=== PATIENT | male | born 1935 | race Caucasian/White ===

== ENCOUNTER 2023-01-08 12:14 | Outpatient (CLI) | payer MEDICARE, MEDICAID | END 2023-01-08 12:15 | disposition critical access hospital (66) | LOC: EMS 12:14 | DX: E11.65 Type 2 diabetes mellitus with hyperglycemia (principal); Z79.4 Long term (current) use of insulin | CPT/HCPCS: A0425; A0429 ==

== ENCOUNTER 2023-01-08 12:35 | Emergency (ER) | payer MEDICARE, MEDICAID ==
--- NOTE | 2023-01-08 13:06 | ED Physician Documentation ---
PD HPI MAJOR TRAUMA - Stated complaint Stated Complaint: GLF - Chief complaint Chief Complaint: Trauma Hd/Nk - History obtained from History obtained from: Patient, EMS - Additional information Additional information: 87-year-old gentleman presents from home place. He is demented. Reportedly fell out of his chair. He has no complaints and really does not know why he is here. PD PAST MEDICAL HISTORY - Allergies Allergies/Adverse Reactions: Allergies Allergy/AdvReac Type Severity Reaction Status Date / Time No Known Drug Allergies Allergy Verified 01/08/23 12:45 PD ED PE NORMAL - Vitals Vital signs reviewed: Yes - General General: No acute distress, Other (He is alert and oriented to person but not place or time or events.) - HEENT HEENT: PERRL, EOMI - Neck Neck: Supple, no meningeal sign, No bony TTP - Cardiac Cardiac: RRR, No murmur - Respiratory Respiratory: No respiratory distress, Clear bilaterally - Abdomen Abdomen: Non tender - Back Back: No CVA TTP, No spinal TTP - Derm Derm: Normal color, Warm and dry - Extremities Extremities: No deformity, No tenderness to palpate, Normal ROM s pain, No edema, No calf tenderness / cord - Neuro Neuro: No motor deficit, No sensory deficit, Normal speech Eye Opening: Spontaneous Motor: Obeys Commands Verbal: Confused GCS Score: 14 Results - Vitals Vitals: Vital Signs - 24 hr 01/08/23 01/08/23 12:41 12:44 Temperature 36.8 C 36.8 C Heart Rate 76 76 Respiratory 16 16 Rate Blood Pressure 141/73 H 141/73 H O2 Saturation 99 99 Oxygen O2 Source Room air PD Medical Decision Making - ED course ED course: 87-year-old gentleman with severe dementia, POLST form recommending comfort care only, I called the shortly after initial evaluation and discussed the physical exam findings, he is does seem to be at his baseline reportedly. She did not want any diagnostic testing except for confirmation of reported prehospital blood sugar that was high. He gets twice a day insulin at the facility, sounds like he is resistant to getting fingersticks. The insulin dosing has not been changed in quite some time, but since blood sugar checks are being done it is unclear what his usual blood sugar is. She requested we check it here and give him a as needed dose of insulin and then maybe make a recommendation for a CGM and/or either as needed insulin or dose adjustments. Departure - Departure Disposition: 01 Home, Self Care Clinical Impression: Fall Qualifiers: Encounter type: initial encounter Qualified Code(s): W19.XXXA - Unspecified fall, initial encounter Dementia Qualifiers: Dementia type: unspecified type Dementia severity: severe Dementia behavioral or psychological symptom: unspecified whether behavioral, psychotic, or mood disturbance or anxiety Qualified Code(s): F03.C0 - Unspecified dementia, severe, without behavioral disturbance, psychotic disturbance, mood disturbance, and anxiety Condition: Good Record reviewed to determine appropriate education?: Yes Instructions: ED Dementia Caregiver Support Comments: Mrs. Valdovinos did not want any diagnostic testing done other than a blood sugar which was 379 here. For that Mr. Valdovinos received an extra dose of 8 units of subcutaneous regular insulin. We do wonder if his blood sugars have been high, consider contacting his primary care physician for orders for more frequent blood sugar checks or a CGM and subsequent to that change in insulin dosing regimen. Forms: PCP List
[2023-01-08] MEDS ORDERED: INSULIN REGULAR HUMAN 300 UNIT/3 ML VIAL SUBQ STA (13:15)
[2023-01-08 14:28] VITALS: BP 138/70; O2SAT 100
== END 2023-01-08 14:27 | disposition home or self-care (01) ==
LOC: ED 12:35
DX: Z04.3 Encounter for examination and observation following other accident (principal); W07.XXXA Fall from chair, initial encounter; Y92.009 Unspecified place in unspecified non-institutional (private) residence as the place of occurrence of the external cause; F03.C0 Unspecified dementia, severe, without behavioral disturbance, psychotic disturbance, mood disturbance, and anxiety
CPT/HCPCS: 99283; 99284; J1815

== ENCOUNTER 2023-03-27 07:10 | Outpatient (CLI) | payer MEDICARE, MEDICAID | END 2023-03-27 23:59 | disposition critical access hospital (66) | LOC: EMS 07:10 | DX: E87.6 Hypokalemia (principal) | CPT/HCPCS: A0425; A0429 ==

== ENCOUNTER 2023-03-27 07:30 | Inpatient (IN) | payer MEDICARE, MEDICAID ==
[2023-03-27 08:11] LABS: BASOPHILS % (AUTO) 0.3 %; EOSINOPHILS # (AUTO) 0.1 10^3/uL (0.0-0.7); EOSINOPHILS % (AUTO) 1.2 %; HCT - HEMATOCRIT 40.3 % (42.0-52.0); LYMPHOCYTES # (AUTO) 2.9 10^3/uL (1.5-3.5); LYMPHOCYTES % (AUTO) 32.2 %; MEAN CORPUSCULAR HEMOGLOBIN 29.7 pg (27.0-31.0); MEAN CORPUSCULAR HGB CONC 32.3 g/dL (32.0-36.0); MEAN PLATELET VOLUME 10.9 fL (7.4-11.4); MONOCYTES # (AUTO) 1.2 10^3/uL (0.0-1.0); MONOCYTES % (AUTO) 13.3 %; NEUTROPHILS # (AUTO) 4.8 10^3/uL (1.5-6.6); NEUTROPHILS % (AUTO) 52.1 %; PLT - PLATELET COUNT 211 10^3/uL (130-450); RED BLOOD COUNT 4.38 10^6/uL (4.70-6.10); RED CELL DISTRIBUTION WIDTH 13.8 % (12.0-15.0); WHITE BLOOD COUNT 9.1 x10^3/uL (4.8-10.8)
--- NOTE | 2023-03-27 08:20 | ED Physician Documentation ---
History of Present Illness - Stated complaint Stated Complaint: high POTASSIUM - Chief complaint Chief Complaint: General - History obtained from History obtained from: Patient - History of Present Illness Timing: How many days ago (unknown how many days he has had high potassium. He has fet mainly okay. Few days of fatigue. Had labs drawn yesterday at [facility] and results today showing high potassium level. Denies change in meds. No recent illness.), Unknown Review of Systems Constitutional: denies: Fever, Chills Cardiac: denies: Chest pain / pressure Respiratory: denies: Dyspnea GI: denies: Vomiting, Constipation, Bloody / black stool PD PAST MEDICAL HISTORY - Past Medical History Past Medical History: Yes Cardiovascular: Hypertension Neuro: Dementia Endocrine/Autoimmune: Type 2 diabetes GI: None - Present Medications Home Medications: Ambulatory Orders Medication Instructions Recorded Confirmed Aspirin Chewable [St Kleber 81 mg PO DAILY 03/27/23 03/27/23 Aspirin] Atorvastatin Calcium 40 mg PO QPM 03/27/23 03/27/23 Empagliflozin [Jardiance] 10 mg PO DAILY 03/27/23 03/27/23 Gabapentin [Neurontin] 1,200 mg PO BID 03/27/23 03/27/23 Insulin Glargine,Hum.rec.anlog 132 units SUBQ DAILY 03/27/23 03/27/23 [[place]o Solostar] Insulin Regular, Human [Novolin R 6 units SUBQ 0800,1200 03/27/23 03/27/23 Flexpen] Lisinopril [Zestril] 20 mg PO DAILY 03/27/23 03/27/23 Multivit-Min/Iron Fum/Folic AC 1 each PO DAILY 03/27/23 03/27/23 [Thera-M Caplet] Omeprazole Magnesium 20 mg PO BID 03/27/23 03/27/23 Quetiapine Fumarate [Seroquel] 50 mg PO TID 03/27/23 03/27/23 Sertraline [Zoloft] 50 mg PO DAILY 03/27/23 03/27/23 - Allergies Allergies/Adverse Reactions: Allergies Allergy/AdvReac Type Severity Reaction Status Date / Time ethyl alcohol Allergy Unknown Verified 03/27/23 07:44 morphine Allergy Unknown Verified 03/27/23 07:44 - Social History Does the pt smoke?: No Smoking Status: Never smoker PD ED PE NORMAL - Vitals Vital signs reviewed: Yes - General General: Alert and oriented X 3, Well developed/nourished - HEENT HEENT: Pharynx benign - Neck Neck: Supple, no meningeal sign, No adenopathy - Cardiac Cardiac: RRR - Respiratory Respiratory: Clear bilaterally - Abdomen Abdomen: Soft, Non tender - Back Back: No CVA TTP - Derm Derm: Normal color Results - Vitals Vitals: Vital Signs - 24 hr 03/27/23 03/27/23 03/27/23 07:40 08:34 09:13 Temperature 36.8 C Heart Rate 80 54 L 39 L Respiratory 14 18 14 Rate Blood Pressure 109/55 L 102/33 L 124/69 O2 Saturation 99 98 99 03/27/23 03/27/23 03/27/23 09:25 09:46 11:45 Temperature Heart Rate 55 L 53 L 88 Respiratory 18 14 16 Rate Blood Pressure 124/69 123/83 H O2 Saturation 100 99 Oxygen O2 Source Room air - Labs Labs: Laboratory Tests 03/27/23 03/27/23 03/27/23 07:52 07:52 09:09 WBC 9.1 RBC 4.38 L Hgb 13.0 L Hct 40.3 L MCV 92.0 MCH 29.7 MCHC 32.3 RDW 13.8 Plt Count 211 MPV 10.9 Neut # (Auto) 4.8 Lymph # (Auto) 2.9 Woods # (Auto) 1.2 H Eos # (Auto) 0.1 Baso # (Auto) 0.0 Absolute Nucleated RBC 0.00 Nucleated RBC % 0.0 Sodium 132 L Potassium 6.8 H* 6.7 H* Chloride 106 Carbon Dioxide 18 L Anion Gap 8.0 BUN 78 H Creatinine 2.1 H Estimated GFR (MDRD) 30 L Glucose 294 H Calcium 9.9 Magnesium 1.9 Total Bilirubin 0.3 AST 19 ALT 18 Alkaline Phosphatase 33 L Total Protein 8.0 Albumin 4.2 Globulin 3.8 Albumin/Globulin Ratio 1.1 Lipase 59 03/27/23 11:53 WBC RBC Hgb Hct MCV MCH MCHC RDW Plt Count MPV Neut # (Auto) Lymph # (Auto) Woods # (Auto) Eos # (Auto) Baso # (Auto) Absolute Nucleated RBC Nucleated RBC % Sodium 135 Potassium 5.3 H Chloride 105 Carbon Dioxide 20 L Anion Gap 10.0 BUN 72 H Creatinine 1.9 H Estimated GFR (MDRD) 34 L Glucose 265 H Calcium 10.1 Magnesium Total Bilirubin AST ALT Alkaline Phosphatase Total Protein Albumin Globulin Albumin/Globulin Ratio Lipase PD Medical Decision Making - ED course Complexity details: reviewed results (sent to ED due to high potassium level from outpt labs done yesterday.), considered differential (old records obtained. Ptis was having increased cough over just few days, and much worse this early SMM.), d/w patient Reviewed Lab Results: improved reasonably, with nancy dow in place to best assess diuresis. Subsquently at late morning, the patient was on monitor and just starting to get meds when pt noted to have heart ate down to 27-30 for 10-15 seconds. Stayed sinu. resume more in range 45-60. Given Albuterol neb, IV insulin with d5ns drip, lasix. BP was seeming a bit high and had room for then Greeting Room. He was more consistent at IV in rate above 55 after meds, though was trending ther with meds. Consider oral med once back to NSR. Departure - Departure Disposition: ED Place in Observation Clinical Impression: Acute hyperkalemia, Elevated serum creatinine Condition: Stable Record reviewed to determine appropriate education?: Yes Discharge Date/Time: 03/27/23 14:55
[2023-03-27 08:28] LABS: ALBUMIN 4.2 g/dL (3.2-5.5); MAGNESIUM 1.9 mg/dL (1.7-2.3)
[2023-03-27 08:32] LABS: ALBUMIN/GLOBULIN RATIO 1.1 (1.0-2.2); BILIRUBIN,TOTAL 0.3 mg/dL (0.2-1.0); CALCIUM 9.9 mg/dL (8.5-10.3); CREATININE 2.1 mg/dL (0.6-1.3); POTASSIUM 6.8 mmol/L (3.5-4.5)
[2023-03-27] MEDS ORDERED: ALBUTEROL NEB 2.5 MG/3 ML INH STA ×2 (09:12→09:17)
[2023-03-27] MEDS ORDERED: CALCIUM GLUC 1,000MG/50ML-NACL 1,000 MG/50 ML BAG IV STA (09:13)
[2023-03-27] MEDS ORDERED: SODIUM ZIRCONIUM CYCLOSILICATE 5 GM PACKET PO STA (09:13)
[2023-03-27] MEDS ORDERED: INSULIN REGULAR HUMAN 300 UNIT/3 ML VIAL IVP STA (09:13)
[2023-03-27] MEDS ORDERED: DEXTROSE 5%-0.9% NACL 1,000 ML IV STA (09:14)
[2023-03-27] MEDS ORDERED: SODIUM BICARBONATE ABBOJECT 50 MEQ/50 ML SYRINGE IVP STA (09:14)
[2023-03-27] MEDS ORDERED: ALBUTEROL NEB 2.5 MG/3 ML INH ONE (09:19)
[2023-03-27 12:12] LABS: CALCIUM 10.1 mg/dL (8.5-10.3); CREATININE 1.9 mg/dL (0.6-1.3); POTASSIUM 5.3 mmol/L (3.5-4.5)
--- NOTE | 2023-03-27 12:55 | HISTORY & PHYSICAL EXAMINATION ---
Chief Complaint - Chief Complaint Chief Complaint: Hyperkalemia History of Present Illness - Admitted From Admitted From:: Emergency room - History Obtained From Records Reviewed: Yes History obtained from: Patient's . - History of Present Illness HPI Comment/Other: Teodoro Valdovinos is an 87-year-old man who presented to the emergency room today fro m a assisted with an elevated potassium. Initial potassium in the assisted was 7.4 and recheck in the emergency room was 6.8 and 6.7.Mr. Valdovinos has moderate/severe dementia and is unable to co ntribute to the history of present illness. Information was obtained from patient's . In the emergency room patient received Lokelma, Albuterol nebulizer treatment, calcium gluconate. History - Past Medical History Neuro: reports: Dementia Endocrine/Autoimmune: reports: Type 2 diabetes Other Past Medical History: Hyperlipidemia. gastroesophageal reflux disease. Dementia. Anxiety/depression. Hypertension - Family & Social History Living arrangement: [facility] Med[facility] - Home Medications Home Medications: Ambulatory Orders Medication Instructions Recorded Confirmed Aspirin Chewable [St Kleber 81 mg PO DAILY 03/27/23 03/27/23 Aspirin] Atorvastatin Calcium 40 mg PO QPM 03/27/23 03/27/23 Empagliflozin [Jardiance] 10 mg PO DAILY 03/27/23 03/27/23 Gabapentin [Neurontin] 1,200 mg PO BID 03/27/23 03/27/23 Insulin Glargine,Hum.rec.anlog 132 units SUBQ DAILY 03/27/23 03/27/23 [[place] Solostar] Insulin Regular, Human [Novolin R 6 units SUBQ 0800,1200 03/27/23 03/27/23 Flexpen] Lisinopril [Zestril] 20 mg PO DAILY 03/27/23 03/27/23 Multivit-Min/Iron Fum/Folic AC 1 each PO DAILY 03/27/23 03/27/23 [Thera-M Caplet] Omeprazole Magnesium 20 mg PO BID 03/27/23 03/27/23 Quetiapine Fumarate [Seroquel] 50 mg PO TID 03/27/23 03/27/23 Sertraline [Zoloft] 50 mg PO DAILY 03/27/23 03/27/23 - Allergies Allergies/Adverse Reactions: Allergies Allergy/AdvReac Type Severity Reaction Status Date / Time ethyl alcohol Allergy Unknown Verified 03/27/23 07:44 morphine Allergy Unknown Verified 03/27/23 07:44 Review of Systems - Cardiovascular Cariovascular: reports: Other (Unable to obtain review of systems from patient because of his dementia.) Exam - Vital Signs Vital Signs: Vital Signs x48h Temp Pulse Resp BP Pulse Ox 03/27/23 11:45 88 16 123/83 H 99 03/27/23 09:46 53 L 14 124/69 100 03/27/23 09:25 55 L 18 03/27/23 09:13 39 L 14 124/69 99 03/27/23 08:34 54 L 18 102/33 L 98 03/27/23 07:40 36.8 C 80 14 109/55 L 99 - Physical Exam General Appearance: positive: No acute distress, Alert, Mild distress Eyes Bilateral: positive: Normal inspection, PERRL, EOMI, No lid inflammation Neck: positive: Nml inspection, Thyroid nml, No JVD Respiratory: positive: Chest non-tender, No respiratory distress, Breath sounds nml Cardiovascular: positive: Regular rate & rhythm, No murmur, No gallop Abdomen: positive: Non-tender, No organomegaly Skin: positive: No rash Conclusion/Plan - Problem List (1) Acute hyperkalemia Conclusion/Plan: Patient has hyperkalemia of a significant degree. Initial hyperkalemia was 7.4 and repeats performed in the emergency room were greater than 6.7. Patient currently has a life-threatening condition that requires monitoring in intensive care unit. Plan: Admit to the intensive care unit for close hemodynamic monitoring. Continue to follow serum potassium and treat with insulin, albuterol and Lokelma. (2) ABDULKADIR (acute kidney injury) Conclusion/Plan: Upon admission BUN/creatinine was 70/2.2. Patient's baseline creatinine is not known but most likely this represents a change from his baseline but is unlikely to result in his degree of hyperkalemia. Plan: Continue to monitor BUNs/creatinine. Gentle fluid hydration. (3) Dementia Conclusion/Plan: Patient has severe dementia. He has a pulse that states he is DO NOT RESUSCITATE and comfort measures only. The pulse was discussed with patient's and she wishes to have him admitted to the hospital for treatment of his hyperkalemia, however, in the event that his condition worsens she does not wish to continue with aggressive care and would want another discussion at that time if possible. Time spent at the bedside, interviewing family, reviewing labs and writing orders is 42 minutes.([id number]) Qualifiers: Dementia type: unspecified type Dementia severity: severe Dementia behavioral or psychological symptom: unspecified whether behavioral, psychotic, or mood disturbance or anxiety Qualified Code(s): F03.C0 - Unspecified dementia, severe, without behavioral disturbance, psychotic disturbance, mood disturbance, and anxiety - Lab Results Fish Bones: 03/28/23 05:33 03/28/23 05:33
[2023-03-27 14:14] LABS: INR 1.1 (0.8-1.2); PT - PROTHROMBIN TIME 11.7 secs (9.9-12.6)
--- NOTE | 2023-03-27 15:11 | PHARMACY PROGRESS NOTE ---
- Best Possible Medication History Admit Date and Time: 03/27/23 9535 Processed by: Pharmacy Medication History completed: Yes Secondary Source(s): Facility MAR as ONLY source As the person ultimately responsible for medication therapy, providers are able to order a medication from an existing home medication list in [facility] via the "Reconcile Routine" prior to Confirmation of that medication by end user support specialist. Such practice is discouraged except when the physician, in their clinical judgment, deems that a medical need exists for a medication without regard to previous use.
[2023-03-27] MEDS: SODIUM CHLORIDE FLUSH 0.9% 10 ML SYRINGE IVP SCH (18:07)
[2023-03-27] MEDS: INSULIN REGULAR HUMAN 300 UNIT/3 ML VIAL SUBQ SCH (19:48)
[2023-03-27] MEDS: SODIUM CHLORIDE 0.9% 1,000 ML IV SCH (21:02)
[2023-03-27] MEDS: SODIUM CHLORIDE FLUSH 0.9% 10 ML SYRINGE IVP PRN (21:03)
[2023-03-27] MEDS: HEPARIN 5,000 UNIT/ML VIAL SUBQ SCH (21:03)
[2023-03-27] MEDS: SODIUM ZIRCONIUM CYCLOSILICATE 5 GM PACKET PO SCH (21:44)
[2023-03-28] MEDS: INSULIN REGULAR HUMAN 300 UNIT/3 ML VIAL SUBQ SCH (00:08)
[2023-03-28] MEDS: SODIUM CHLORIDE FLUSH 0.9% 10 ML SYRINGE IVP SCH ×3 (00:09→16:28)
[2023-03-28 05:45] LABS: CALCIUM, IONIZED 1.18 mmol/L (1.15-1.33); VBG PH 7.349 (7.31-7.41)
[2023-03-28 05:48] LABS: BASOPHILS % (AUTO) 0.2 %; EOSINOPHILS # (AUTO) 0.1 10^3/uL (0.0-0.7); EOSINOPHILS % (AUTO) 0.6 %; HCT - HEMATOCRIT 35.6 % (42.0-52.0); HGB - HEMOGLOBIN 11.6 g/dL (14.0-18.0); LYMPHOCYTES % (AUTO) 33.9 %; MEAN CORPUSCULAR HGB CONC 32.6 g/dL (32.0-36.0); MEAN PLATELET VOLUME 10.3 fL (7.4-11.4); MONOCYTES # (AUTO) 1.3 10^3/uL (0.0-1.0); MONOCYTES % (AUTO) 14.8 %; NEUTROPHILS # (AUTO) 4.4 10^3/uL (1.5-6.6); NEUTROPHILS % (AUTO) 49.8 %; PLT - PLATELET COUNT 191 10^3/uL (130-450); RED BLOOD COUNT 3.87 10^6/uL (4.70-6.10); WHITE BLOOD COUNT 8.8 x10^3/uL (4.8-10.8)
[2023-03-28 05:55] LABS: ALBUMIN 3.7 g/dL (3.2-5.5); ALKALINE PHOSPHATASE 26 IU/L (42-121); ALT ALANINE AMINOTRANSFERASE 15 IU/L (10-60); AST ASPARTATE AMINOTRANSFERASE 19 IU/L (10-42); BILIRUBIN,DIRECT < 0.10 mg/dL (0.03-0.18); BILIRUBIN,TOTAL 0.4 mg/dL (0.2-1.0); BUN - BLOOD UREA NITROGEN 55 mg/dL (6-20); CALCIUM 9.2 mg/dL (8.5-10.3); CARBON DIOXIDE - CO2 20 mmol/L (21-32); CHLORIDE 108 mmol/L (101-111); CREATININE 1.4 mg/dL (0.6-1.3); GFR - MDRD 48 (>89); GLUCOSE 103 mg/dL (74-104); MAGNESIUM 1.6 mg/dL (1.7-2.3); PHOSPHORUS 3.5 mg/dL (2.5-5.0); SODIUM 135 mmol/L (135-145); TOTAL PROTEIN 6.8 g/dL (6.4-8.9)
[2023-03-28] MEDS: SODIUM ZIRCONIUM CYCLOSILICATE 5 GM PACKET PO SCH ×4 (06:37→21:08)
[2023-03-28] MEDS: PANTOPRAZOLE 40 MG VIAL IVP SCH (06:38)
[2023-03-28] MEDS ORDERED: MAGNESIUM OXIDE 400 MG TABLET PO ONE (07:00)
[2023-03-28] MEDS: INSULIN LISPRO 300 UNIT/3 ML PEN SUBQ SCH ×4 (08:04→21:21)
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
[2023-03-28] MEDS: SODIUM CHLORIDE 0.9% 1,000 ML IV SCH ×2 (09:19→21:09)
[2023-03-28] MEDS: HEPARIN 5,000 UNIT/ML VIAL SUBQ SCH ×2 (10:31→21:07)
[2023-03-28] MEDS: ASPIRIN CHEW 81 MG TABLET PO SCH (10:32)
[2023-03-28] MEDS: QUEtiapine 25 MG TABLET PO SCH ×3 (10:32→21:08)
[2023-03-28] MEDS: SERTRALINE 50 MG TABLET PO SCH (10:32)
[2023-03-28] MEDS: ATORVASTATIN 40 MG TABLET PO SCH (21:08)
[2023-03-28] MEDS: GABAPENTIN 400 MG CAPSULE PO SCH (21:08)
[2023-03-28] MEDS: SODIUM CHLORIDE FLUSH 0.9% 10 ML SYRINGE IVP PRN (21:09)
[2023-03-28 21:32] LABS: PHOSPHORUS 3.5 mg/dL (2.5-5.0); POTASSIUM 4.8 mmol/L (3.5-4.5)
[2023-03-29] MEDS: QUEtiapine 25 MG TABLET PO SCH ×3 (05:04→23:00)
[2023-03-29] MEDS: SODIUM CHLORIDE FLUSH 0.9% 10 ML SYRINGE IVP SCH ×3 (05:04→17:24)
[2023-03-29 06:25] LABS: CALCIUM 9.3 mg/dL (8.5-10.3); CREATININE 1.5 mg/dL (0.6-1.3); MAGNESIUM 1.5 mg/dL (1.7-2.3); POTASSIUM 4.4 mmol/L (3.5-4.5)
[2023-03-29] MEDS: PANTOPRAZOLE 40 MG VIAL IVP SCH (06:28)
[2023-03-29] MEDS: SODIUM ZIRCONIUM CYCLOSILICATE 5 GM PACKET PO SCH ×2 (06:28→06:40)
[2023-03-29] MEDS: INSULIN LISPRO 300 UNIT/3 ML PEN SUBQ SCH ×4 (09:03→20:14)
[2023-03-29] MEDS: HEPARIN 5,000 UNIT/ML VIAL SUBQ SCH ×2 (09:03→20:14)
[2023-03-29] MEDS: GABAPENTIN 400 MG CAPSULE PO SCH ×2 (09:05→20:14)
[2023-03-29] MEDS: SERTRALINE 50 MG TABLET PO SCH (09:05)
[2023-03-29] MEDS: MAGNESIUM OXIDE 400 MG TABLET PO SCH (09:05)
[2023-03-29] MEDS: ASPIRIN CHEW 81 MG TABLET PO SCH (09:06)
[2023-03-29] MEDS: SODIUM CHLORIDE 0.9% 1,000 ML IV SCH ×2 (10:13→23:08)
[2023-03-29] MEDS: ATORVASTATIN 40 MG TABLET PO SCH (20:13)
[2023-03-29] MEDS ORDERED: ENOXAPARIN 40 MG/0.4 ML SYRINGE SUBQ SCH (21:00)
--- NOTE | 2023-03-29 23:10 | PROVIDER PROGRESS NOTE ---
Assessment/Plan - Problem List (1) Acute hyperkalemia Assessment/Plan: Patient initially had a life threatening electrolyle abnormality with potassium in greater than 6.7. Initial hyperkalemia was 7.4 and repeats performed in the emergency room were greater than 6.7. Hyperkalemia has improved with treatment but continues to remain mildly elevated. Plan: Continue lokelma as needed for elevated K Continue to follow potassium (2) ABDULKADIR (acute kidney injury) Assessment/Plan: Upon admission BUN/creatinine was 70/2.2. Creatinine has improved from 2.2-1.5. Etiology of acute renal failure is not clear but is highly likely secondary to dementia and decreased p.o. intake. Plan: Continue to monitor BUN/creatinine. Gentle fluid hydration. (3) Dementia Qualifiers: Dementia type: unspecified type Dementia severity: severe Dementia behavioral or psychological symptom: unspecified whether behavioral, psychotic, or mood disturbance or anxiety Qualified Code(s): F03.C0 - Unspecified dementia, severe, without behavioral disturbance, psychotic disturbance, mood disturbance, and anxiety Assessment/Plan: Patient has severe dementia. He has a POLST that states he is DO NOT RESUSCITATE and comfort measures only. The pulse was discussed with patient's and she wishes to have him admitted to the hospital for treatment of his hyperkalemia, however, in the event that his condition worsens she does not wish to continue with aggressive care and would want another discussion at that time if possible. Plan: Continue outpatient dose of quetiapine Plan to discuss the fact that the reason for patient's hyperkalemia and renal failure most likely is related to his dementia and the fact that he is probably not taking enough p.o. intake. Discussed the above with patient's . - Current Meds Current Meds: Current Medications Generic Name Dose Route Start Last Admin Trade Name Freq PRN Reason Stop Dose Admin Aspirin 81 mg 03/28/23 10:00 03/29/23 09:06 Aspirin Chew 81 Mg Tablet PO 81 mg DAILY [facility] Administration Atorvastatin Calcium 40 mg 03/28/23 21:00 03/29/23 20:13 Atorvastatin 40 Mg Tablet PO 40 mg QPM [facility] Administration Gabapentin 800 mg 03/28/23 21:00 03/29/23 20:14 Gabapentin 400 Mg Capsule PO 800 mg BID [facility] Administration Heparin Sodium (Porcine) 5,000 unit 03/27/23 21:00 03/29/23 20:14 Heparin 5,000 Unit/Ml Vial SUBQ Not Given BID [facility] Sodium Chloride 1,000 mls @ 83.333 mls/hr 03/27/23 21:00 03/29/23 10:13 Normal Saline 0.9% IV Not Given .Q12H [facility] Insulin Human Lispro 1 - 9 unit 03/28/23 08:00 03/29/23 20:14 Insulin Lispro 300 Unit/3 Ml Pen SUBQ 7 unit 0800,1200,1700,2100 [facility] Administration Protocol Magnesium Oxide 400 mg 03/29/23 08:00 03/29/23 09:05 Magnesium Oxide 400 Mg Tablet PO 400 mg DAILYWM [facility] Administration Quetiapine Fumarate 50 mg 03/28/23 10:00 03/29/23 14:54 Quetiapine 25 Mg Tablet PO 50 mg TID [facility] Administration Sertraline HCl 50 mg 03/28/23 10:00 03/29/23 09:05 Sertraline 50 Mg Tablet PO 50 mg DAILY [facility] Administration Sodium Chloride 10 ml 03/27/23 17:00 03/29/23 17:24 Sodium Chloride Flush 0.9% 10 Ml Syringe IVP 10 ml 0100,0900,1700 [facility] Administration Sodium Chloride 10 ml 03/27/23 12:59 03/28/23 21:09 Sodium Chloride Flush 0.9% 10 Ml Syringe IVP 10 ml PRN PRN Administration NEEDED PER PROVIDER ORDERS - Lab Result Fish Bone Diagrams: 03/28/23 05:33 03/29/23 04:58 - Additional Planning My Orders: My Active Orders 03/29/23 08:00 Magnesium Oxide [Mag Ox] 400 mg PO DAILYWM 03/30/23 05:00 BMP - BASIC METABOLIC PANEL [CHEM] DAILYLAB 03/30/23 07:00 Pantoprazole [Protonix] 40 mg PO QDAC 03/31/23 05:00 BMP - BASIC METABOLIC PANEL [CHEM] DAILYLAB 04/01/23 05:00 BMP - BASIC METABOLIC PANEL [CHEM] DAILYLAB 04/02/23 05:00 BMP - BASIC METABOLIC PANEL [CHEM] DAILYLAB Subjective - Subjective Patient Reports: Other (Patient sleeps most of the time. He can be violent. He has no complaints.) Objective Vital Signs: Vital Signs - 24 hr 03/29/23 03/29/23 03/29/23 01:00 05:00 09:00 Temperature 37.0 C 36.8 C Heart Rate [ 81 84 88 Monitoring electrodes] Respiratory 20 20 18 Rate Blood Pressure 128/74 138/61 H 138/55 H [Left Brachial artery] O2 Saturation 95 97 96 03/29/23 03/29/23 17:00 20:29 Temperature 36.6 C 36.5 C Heart Rate [ 53 L 68 Monitoring electrodes] Respiratory 16 18 Rate Blood Pressure 131/46 H 148/68 H [Left Brachial artery] O2 Saturation 95 97 Oxygen O2 Source Room air I&O (Last 24 Hrs): Intake and Output Totals x24h 03/27/23 03/28/23 03/29/23 23:59 23:59 23:59 Intake Total 1050 5320 625 Output Total 250 0 Balance 800 5320 625 General: Alert, No acute distress HEENT: Atraumatic, PERRLA, EOMI Neck: Supple, No JVD Lymphatic: no adenopathy Neuro: Alert, Non Focal Cardiovascular: Regular rate, Normal S1, Normal S2, No murmurs Respiratory: Chest non-tender, No respiratory distress, Breath sounds nml, Wheezes Abdomen: Normal bowel sounds, Soft, No tenderness Extremities: No clubbing, No cyanosis, No edema Skin: No rashes - Results Results: Laboratory Results WBC 8.8 x10^3/uL (4.8-10.8) 03/28/23 05:33 RBC 3.87 10^6/uL (4.70-6.10) L 03/28/23 05:33 Hgb 11.6 g/dL (14.0-18.0) L 03/28/23 05:33 Hct 35.6 % (42.0-52.0) L 03/28/23 05:33 MCV 92.0 fL (80.0-94.0) 03/28/23 05:33 MCH 30.0 pg (27.0-31.0) 03/28/23 05:33 MCHC 32.6 g/dL (32.0-36.0) 03/28/23 05:33 RDW 14.0 % (12.0-15.0) 03/28/23 05:33 Plt Count 191 10^3/uL (130-450) 03/28/23 05:33 MPV 10.3 fL (7.4-11.4) 03/28/23 05:33 Neut # (Auto) 4.4 10^3/uL (1.5-6.6) 03/28/23 05:33 Lymph # (Auto) 3.0 10^3/uL (1.5-3.5) 03/28/23 05:33 [place] # (Auto) 1.3 10^3/uL (0.0-1.0) H 03/28/23 05:33 Eos # (Auto) 0.1 10^3/uL (0.0-0.7) 03/28/23 05:33 Baso # (Auto) 0.0 10^3/uL (0.0-0.1) 03/28/23 05:33 Absolute Nucleated RBC 0.00 x10^3/uL 03/28/23 05:33 Nucleated RBC % 0.0 /100WBC 03/28/23 05:33 PT 11.7 secs (9.9-12.6) 03/27/23 13:50 INR 1.1 (0.8-1.2) 03/27/23 13:50 VBG pH 7.349 (7.31-7.41) 03/28/23 05:33 Ionized Calcium 1.18 mmol/L (1.15-1.33) 03/28/23 05:33 Sodium 137 mmol/L (135-145) 03/29/23 04:58 Potassium 4.4 mmol/L (3.5-4.5) 03/29/23 04:58 Chloride 108 mmol/L (101-111) 03/29/23 04:58 Carbon Dioxide 19 mmol/L (21-32) L 03/29/23 04:58 Anion Gap 10.0 (6-13) 03/29/23 04:58 BUN 42 mg/dL (6-20) H 03/29/23 04:58 Creatinine 1.5 mg/dL (0.6-1.3) H 03/29/23 04:58 Estimated GFR (MDRD) 44 (>89) L 03/29/23 04:58 Glucose 145 mg/dL (74-104) H 03/29/23 04:58 Calcium 9.3 mg/dL (8.5-10.3) 03/29/23 04:58 Phosphorus 3.5 mg/dL (2.5-5.0) 03/28/23 21:10 Magnesium 1.5 mg/dL (1.7-2.3) L 03/29/23 04:58 Total Bilirubin 0.4 mg/dL (0.2-1.0) 03/28/23 05:33 Direct Bilirubin < 0.10 mg/dL (0.03-0.18) 03/28/23 05:33 AST 19 IU/L (10-42) 03/28/23 05:33 ALT 15 IU/L (10-60) 03/28/23 05:33 Alkaline Phosphatase 26 IU/L (42-121) L 03/28/23 05:33 Total Creatine Kinase 166 IU/L (30-223) 03/27/23 18:40 Troponin I High Sens 9.4 ng/L (2.3-19.7) 03/27/23 13:50 Total Protein 6.8 g/dL (6.4-8.9) 03/28/23 05:33 Albumin 3.7 g/dL (3.2-5.5) 03/28/23 05:33 Globulin 3.1 g/dL (2.1-4.2) 03/28/23 05:33 Albumin/Globulin Ratio 1.1 (1.0-2.2) 03/27/23 07:52 Lipase 59 U/L (11-82) 03/27/23 07:52 Nasal Screen MRSA (PCR) NEGATIVE (NEGATIVE) 03/27/23 14:50 ABX Reporting Has patient been on IV antibiotics over the past 48 hours?: No Current Medications - Current Medications Current Medications: Active Medications Aspirin (Aspirin Chew 81 Mg Tablet) 81 mg PO DAILY [facility] Last Admin: 03/29/23 09:06 Dose: 81 mg Atorvastatin Calcium (Atorvastatin 40 Mg Tablet) 40 mg PO QPM [facility] Last Admin: 03/29/23 20:13 Dose: 40 mg Gabapentin (Gabapentin 400 Mg Capsule) 800 mg PO BID [facility] Last Admin: 03/29/23 20:14 Dose: 800 mg Heparin Sodium (Porcine) (Heparin 5,000 Unit/Ml Vial) 5,000 unit SUBQ BID [facility] Last Admin: 03/29/23 20:14 Dose: Not Given Sodium Chloride (Normal Saline 0.9%) 1,000 mls @ 83.333 mls/hr IV .Q12H [facility] Last Admin: 03/29/23 10:13 Dose: Not Given Insulin Human Lispro (Insulin Lispro 300 Unit/3 Ml Pen) 1 - 9 unit SUBQ 0800,1200,1700,2100 [facility]; Protocol Last Admin: 03/29/23 20:14 Dose: 7 unit Magnesium Oxide (Magnesium Oxide 400 Mg Tablet) [facility] [place] Last Admin: 03/29/23 09:05 Dose: 400 mg Pantoprazole Sodium (Pantoprazole 40 Mg Tablet) 40 mg PO QDAC [facility] Quetiapine Fumarate (Quetiapine 25 Mg Tablet) 50 mg PO TID [facility] Last Admin: 03/29/23 14:54 Dose: 50 mg Sertraline HCl (Sertraline 50 Mg Tablet) 50 mg PO DAILY [facility] Last Admin: 03/29/23 09:05 Dose: 50 mg Sodium Chloride (Sodium Chloride Flush 0.9% 10 Ml Syringe) 10 ml IVP 0100,0900,1700 [facility] Last Admin: 03/29/23 17:24 Dose: 10 ml Sodium Chloride (Sodium Chloride Flush 0.9% 10 Ml Syringe) 10 ml IVP PRN PRN PRN Reason: NEEDED PER PROVIDER ORDERS Last Admin: 03/28/23 21:09 Dose: 10 ml Aspirin Chewable [St Kleber Aspirin] 81 mg PO DAILY 03/27/23 Atorvastatin Calcium 40 mg PO QPM 03/27/23 Empagliflozin [Jardiance] 10 mg PO DAILY 03/27/23 Gabapentin [Neurontin] 1,200 mg PO BID 03/27/23 Insulin Glargine,Hum.rec.anlog [Nabor Cheostandrzej] 132 units SUBQ DAILY 03/27/23 Insulin Regular, Human [Novolin R Flexpen] 6 units SUBQ 0800,1200 03/27/23 Lisinopril [Zestril] 20 mg PO DAILY 03/27/23 Multivit-Min/Iron Fum/Folic AC [Thera-M Caplet] 1 each PO DAILY 03/27/23 Omeprazole Magnesium 20 mg PO BID 03/27/23 Quetiapine Fumarate [Seroquel] 50 mg PO TID 03/27/23 Sertraline [Zoloft] 50 mg PO DAILY 03/27/23
[2023-03-30] MEDS: SODIUM CHLORIDE FLUSH 0.9% 10 ML SYRINGE IVP SCH ×2 (00:52→08:18)
[2023-03-30] MEDS: SODIUM CHLORIDE 0.9% 1,000 ML IV SCH (00:55)
[2023-03-30 05:52] LABS: CALCIUM 9.2 mg/dL (8.5-10.3); CREATININE 1.2 mg/dL (0.6-1.3); POTASSIUM 4.2 mmol/L (3.5-4.5)
[2023-03-30] MEDS: QUEtiapine 25 MG TABLET PO SCH ×2 (06:04→13:01)
[2023-03-30] MEDS ORDERED: PANTOPRAZOLE 40 MG TABLET PO SCH (07:00)
[2023-03-30] MEDS: INSULIN LISPRO 300 UNIT/3 ML PEN SUBQ SCH ×2 (08:15→12:01)
[2023-03-30] MEDS: ASPIRIN CHEW 81 MG TABLET PO SCH (08:17)
[2023-03-30] MEDS: SERTRALINE 50 MG TABLET PO SCH (08:17)
[2023-03-30] MEDS: GABAPENTIN 400 MG CAPSULE PO SCH (08:17)
[2023-03-30] MEDS: MAGNESIUM OXIDE 400 MG TABLET PO SCH (08:18)
[2023-03-30] MEDS: HEPARIN 5,000 UNIT/ML VIAL SUBQ SCH (08:18)
[2023-03-30 08:54] VITALS: O2SAT 98
--- NOTE | 2023-03-30 11:53 | Discharge Plan ---
"Discharge Plan for SNF / [facility] - Discharge Plan And Transition Orders Problem Reviewed?: Yes Disposition: 03 SNF DC/Xfer Condition: Stable Allergies and Adverse Reactions: Allergies Allergy/AdvReac Type Severity Reaction Status Date / Time ethyl alcohol Allergy Unknown Verified 03/27/23 07:44 morphine Allergy Unknown Verified 03/27/23 07:44 Health Concerns: The patient was admitted with confusion, combativeness and found to have acute kidney injury and severe hyperkalemia. He has a POLST that says DNR and comfort measures only, but the wanted him admitted to treat the hyperkalemia. He received IV fluids. His K and creatinine improved. He is returning back to his residential. Plan of Treatment: Cont previous meds and plan, except stop Long acting Insulin and stop Jardiance. Care Goals: Continued comfort is the goal. Assessment: The is agreeable with the plan. - SNF / [facility] Transition Orders Admit to (Facility): Home Place Under the care of (Name): Marija Rolle NP Discharge Diagnosis: (1) Acute hyperkalemia K was 7.4. he got Lokelma and iv fluids to treat his ABDULKADIR. His K was 4.2 at discharge. Jardiance can cause hyperkalemia and was stopped. (2) ABDULKADIR (acute kidney injury) Creat was 2.1 at admission and improved to 1.2 after iv fluids, at the time of discharge. (3) Dementia Qualified Code(s): F03.C0 - Unspecified dementia, severe, without behavioral disturbance, psychotic disturbance, mood disturbance, and anxiety. Patient has severe dementia. He has a POLST form that states he is DO NOT RESU SCITATE and comfort measures only. However, the wanted to have him admitted to the hospital for treatment of his hyperkalemia. was told that his renal failure most likely is related to his dementia, and the fact that he is probably not taking in enough p.o. liquid intake, since he sleeps most of the day. (4) Type 2 diabetes Diabetic management was continued. Jardiance should no longer be used, since it can cause hyperkalemia. (5) Hypertension Stable on meds (6) GERD (gastroesophageal reflux disease) Stable on meds (7) Anxiety/depression We continued his outpatient doses of Quetiapine and Zoloft. Medicare Certification Statement: Notify PCP of admission and forward orders to primary provider for signature. Other Notification Orders: Call PCP immediately if patient develops dyspnea, chest pain/tightness or edema. House Bowel Program: Yes Additional Bowel Program Orders: If no BM after 2 days, nurse may give M.O.M. 30ml PO PRN and/or ducolax Supp 1 OK and/or DANI 250mg P.O., and/or senna 1-2 tabs PO. On day 3 nurse may give repeat above order until residents constipation is resolved. Annual Influenza Vaccine (between Nov 20 and June 19): Yes Two-step PPD per [facility] [phone] or approved exception documents: Yes Medication Orders: PLEASE REFER TO THE DISCHARGE MEDICATION LIST. Insulin Orders?: Yes - Diet Type: Geriatric Texture: [facility] soft Liquids: Thin (Encourage oral liquids) May have monthly special meal: Yes - Therapies | Activity Activity: Activity as Tolerated Follow Up: See PCP for a hospital F/U visit. Insulin Orders - SNF Basal | Correction | Custom Orders: Diagnosis: Diabetes Initiate hypo and hyperglycemia protocols for BG <70 and BG >375. May check BG PRN for signs/symptoms of dysglycemia. Frequency of BG checks: [AC & HS] Basal Insulin: None Correction Insulin: Low dose correction"
[2023-03-30 12:11] VITALS: BP 134/84
--- NOTE | 2023-03-30 12:27 | DISCHARGE SUMMARY ---
Discharge Summary Admit Date: 03/27/23 Discharge Date: 03/30/23 Discharging Provider: Nicol Emerson MD Primary Care Provider: Marija Rolle NP Code Status: Do Not Attempt Resuscitation Condition at Discharge: Stable Discharge Disposition: 03 SNF DC/Xfer - HPI History of Present Illness: Teodoro Valdovinos is an 87-year-old man who presented to the emergency room today from a detention with an elevated potassium. Initial potassium in the detention was 7.4 and recheck in the emergency room was 6.8 and 6.7. Creat was 2.0 and is usually 1.0. 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 Information was obtained from patient's . In the emergency room patient received Lokelma, Albuterol nebulizer treatment, calcium gluconate. He will be admitted to thr Hospitalist Team. - HOSPITAL COURSE Hospital Course: (1) Acute hyperkalemia K was 7.4. He got Lokelma and iv fluids to treat his ABDULKADIR. His K was 4.2 at discharge. Jardiance can cause hyperkalemia and was stopped. (2) ABDULKADIR (acute kidney injury) Creat was 2.1 at admission and improved to 1.2 after iv fluids, at the time of discharge. (3) Dementia Qualified Code(s): F03.C0 - Unspecified dementia, severe, without behavioral disturbance, psychotic disturbance, mood disturbance, and anxiety. Patient has severe dementia. He has a POLST form that states he is DO NOT RESUSCITATE and comfort measures only. However, the wanted to have him admitted to the hospital for treatment of his hyperkalemia. was told that his renal failure most likely is related to his dementia, probably causing him to not take in enough p.o. liquids, since he sleeps most of the day. He was discharged back to his [facility]. (4) Type 2 diabetes Diabetic management was continued. Jardiance should no longer be used, since it can cause hyperkalemia. (5) Hypertension Stable on meds (6) GERD (gastroesophageal reflux disease) Stable on meds (7) Anxiety/depression We continued his outpatient doses of Quetiapine and Zoloft. - ALLERGIES Allergies/Adverse Reactions: Allergies Allergy/AdvReac Type Severity Reaction Status Date / Time ethyl alcohol Allergy Unknown Verified 03/27/23 07:44 morphine Allergy Unknown Verified 03/27/23 07:44 - MEDICATIONS Home Medications: Ambulatory Orders Medication Instructions Recorded Confirmed Aspirin Chewable [St Kleber 81 mg PO DAILY 03/27/23 03/27/23 Aspirin] Atorvastatin Calcium 40 mg PO QPM 03/27/23 03/27/23 Gabapentin [Neurontin] 1,200 mg PO BID 03/27/23 03/27/23 Insulin Regular, Human [Novolin R 6 units SUBQ 0800,1200 03/27/23 03/27/23 Flexpen] Lisinopril [Zestril] 20 mg PO DAILY 03/27/23 03/27/23 Multivit-Min/Iron Fum/Folic AC 1 each PO DAILY 03/27/23 03/27/23 [Thera-M Caplet] Omeprazole Magnesium 20 mg PO BID 03/27/23 03/27/23 Quetiapine Fumarate [Seroquel] 50 mg PO TID 03/27/23 03/27/23 Sertraline [Zoloft] 50 mg PO DAILY 03/27/23 03/27/23 - PHYSICAL EXAM AT DISCHARGE General Appearance: positive: No acute distress, Lethargic Eyes Bilateral: positive: No lid inflammation ENT: positive: No signs of dehydration Neck: positive: Nml inspection Respiratory: positive: No respiratory distress Cardiovascular: positive: Regular rate & rhythm Abdomen: positive: Non-tender, No distention Skin: positive: Warm, Dry Extremities: positive: No pedal edema Neurologic/Psychiatric: positive: Other (Lethargic. Poor memory. Minimally communicative. Moves all extremities.) - LABS Result Diagrams: 03/28/23 05:33 03/30/23 04:25 - DIAGNOSTIC IMAGING Diagnostic Imaging Results: Final report reviewed - FOLLOW UP Follow Up: See PCP after discharge. - TIME SPENT Time Spent in Discharge (Minutes): 40
== END 2023-03-30 15:40 | DRG 641 ==
LOC: ED 07:30 → MS2 12:59 → ICU 14:25
PROVIDERS: ADMIT Internal Medicine; ATTEND Internal Medicine
DX: E87.5 Hyperkalemia (principal); R79.89 Other specified abnormal findings of blood chemistry; N17.9 Acute kidney failure, unspecified; F03.C0 Unspecified dementia, severe, without behavioral disturbance, psychotic disturbance, mood disturbance, and anxiety; E11.9 Type 2 diabetes mellitus without complications; Z79.84 Long term (current) use of oral hypoglycemic drugs; I10 Essential (primary) hypertension; K21.9 Gastro-esophageal reflux disease without esophagitis; F41.9 Anxiety disorder, unspecified; F32.A Depression, unspecified; E78.5 Hyperlipidemia, unspecified; Z66 Do not resuscitate
CPT/HCPCS: 36415; 80048; 80053; 80076; 82330; 82550; 83690; 83735; 84100; 84132; 84484; 85025; 85610; 87150; 93005; 94640; 96365; 96375; 99283; 99285; A9270; J1815

== ENCOUNTER 2023-03-30 14:58 | Outpatient (CLI) | payer MEDICARE, MEDICAID | END 2023-03-30 23:59 | disposition home or self-care (01) | LOC: EMS 14:58 | PROVIDERS: ATTEND Internal Medicine | DX: F03.90 Unspecified dementia, unspecified severity, without behavioral disturbance, psychotic disturbance, mood disturbance, and anxiety (principal); N19 Unspecified kidney failure; Z74.01 Bed confinement status | CPT/HCPCS: A0425; A0428 ==

== ENCOUNTER 2023-05-11 17:00 | Outpatient (CLI) | payer MEDICARE, MEDICAID | END 2023-05-11 23:59 | disposition critical access hospital (66) | LOC: EMS 17:00 | DX: R39.89 Other symptoms and signs involving the genitourinary system (principal); R10.31 Right lower quadrant pain; R10.32 Left lower quadrant pain | CPT/HCPCS: A0425; A0429 ==

== ENCOUNTER 2023-05-11 17:20 | Emergency (ER) | payer MEDICARE, MEDICAID ==
--- NOTE | 2023-05-11 17:25 | ED Physician Documentation ---
History of Present Illness - Stated complaint Stated Complaint: - History obtained from History obtained from: Patient, EMS - Additonal information Additional information: The patient is sent to the emergency department from home place where he lives for chief complaint of urinary retention for the last 10 hours. The patient states he feels as though he is going to "explode his bladder". He has not had any nausea or vomiting per the medics. He generally is DNR with comfort measures, and initially did not want to come to the ED, but the staff insisted he come because of his level of discomfort. No other complaints at this time. PD PAST MEDICAL HISTORY - Past Medical History Cardiovascular: Hypertension Respiratory: None Neuro: Dementia Endocrine/Autoimmune: Type 2 diabetes GI: None : Incontinence Derm: None - Past Surgical History General: Cholecystectomy Ortho: Shoulder arthroplasty Cardiovascular: CABG HEENT: Cataracts - Present Medications Home Medications: Ambulatory Orders Medication Instructions Recorded Confirmed Aspirin Chewable [St Kelber 81 mg PO DAILY 03/27/23 03/27/23 Aspirin] Atorvastatin Calcium 40 mg PO QPM 03/27/23 03/27/23 Gabapentin [Neurontin] 1,200 mg PO BID 03/27/23 03/27/23 Insulin Regular, Human [Novolin R 6 units SUBQ 0800,1200 03/27/23 03/27/23 Flexpen] Lisinopril [Zestril] 20 mg PO DAILY 03/27/23 03/27/23 Multivit-Min/Iron Fum/Folic AC 1 each PO DAILY 03/27/23 03/27/23 [Thera-M Caplet] Omeprazole Magnesium 20 mg PO BID 03/27/23 03/27/23 Quetiapine Fumarate [Seroquel] 50 mg PO TID 03/27/23 03/27/23 Sertraline [Zoloft] 50 mg PO DAILY 03/27/23 03/27/23 - Allergies Allergies/Adverse Reactions: Allergies Allergy/AdvReac Type Severity Reaction Status Date / Time ethyl alcohol Allergy Unknown Verified 05/11/23 17:29 morphine Allergy Unknown Verified 05/11/23 17:29 - Social History Does the pt smoke?: No Smoking Status: Never smoker PD ED PE NORMAL - Vitals Vital signs reviewed: Yes - General General: No acute distress, Well developed/nourished, Other (Patient appears uncomfortable otherwise in no apparent distress.) - HEENT HEENT: Atraumatic, PERRL, EOMI, Moist mucous membranes - Neck Neck: Supple, no meningeal sign - Cardiac Cardiac: RRR, No murmur - Respiratory Respiratory: No respiratory distress, Clear bilaterally - Abdomen Abdomen: Soft, Non distended, Other (Tender to palpation suprapubically. No rebound or guarding.) - Derm Derm: Normal color, Warm and dry, No rash - Extremities Extremities: No deformity, No edema - Neuro Neuro: Other (No gross deficits) - Psych Psych: Normal mood, Normal affect Results - Vitals Vitals: Oxygen O2 Source Room air - Labs Labs: Microbiology 05/11/23 19:05 Urine Culture - Preliminary Urine,Catheterized Laboratory Tests 05/11/23 19:05 Urine Color YELLOW Urine Clarity CLEAR Urine pH 8.0 H Ur Specific Phillips 1.010 Urine Protein NEGATIVE Urine Glucose (UA) >=1000 H Urine Ketones NEGATIVE Urine Occult Blood MODERATE H Urine Nitrite NEGATIVE Urine Bilirubin NEGATIVE Urine Urobilinogen 0.2 (NORMAL) Ur Leukocyte Esterase SMALL H Urine RBC 6-10 H Urine WBC >25 H Ur Squamous Epith Cells NONE SEEN Urine Bacteria Moderate H Ur Microscopic Review INDICATED Urine Culture Comments INDICATED PD Medical Decision Making - ED course Complexity details: considered differential, d/w patient ED course: The pt initially refused all intervention, and would not let nursing staff proceed with catheterization. However, the pt's arrived before the pt could be returned to his [facility], and convinced him to go through with catheterization. The pt was signed out to Dr. Frank at change of shift, pending UA and final disposition, as catheter had just been placed. Departure - Departure Disposition: 01 Home, Self Care Clinical Impression: Acute urinary retention Condition: Stable Instructions: ED Retention Urinary Male Forms: PCP List Discharge Date/Time: 05/11/23 19:39
[2023-05-11] MEDS: HYDROcod/ACETAM 5/325 MG TABLET PO STA ×2 (18:48→19:22)
[2023-05-11] MEDS: LIDOCAINE 2% URO-JET 5 ML SYRINGE UR STA (18:54)
[2023-05-11] MEDS: LORazepam 1 MG TABLET PO STA (18:55)
[2023-05-11] MEDS: KETOROLAC 30 MG/ML VIAL IM STA (18:55)
[2023-05-11 19:20] LABS: BILIRUBIN,URINE NEGATIVE (NEGATIVE); GLUCOSE, URINE (UA) >=1000 mg/dL (NEGATIVE); KETONES,URINE (UA) NEGATIVE (NEGATIVE); LEUKOCYTE ESTERASE, URINE SMALL (NEGATIVE); NITRITE,URINE NEGATIVE (NEGATIVE); OCCULT BLOOD,URINE MODERATE (NEGATIVE); PROTEIN,URINE NEGATIVE (NEGATIVE); UROBILINOGEN,URINE 0.2 (NORMAL) E.U./dL (NORMAL)
[2023-05-11 19:21] LABS: CLARITY,URINE CLEAR (CLEAR)
[2023-05-11 19:32] LABS: BACTERIA,URINE Moderate /HPF (None Seen); SQUAMOUS EPITHELIAL CELL,UR NONE SEEN (<= Few); WBC,URINE >25 /HPF (0-3)
[2023-05-11 19:39] VITALS: BP 122/63; O2SAT 97
--- NOTE | 2023-05-13 22:43 | ED Physician Documentation ---
ED Addendum - Addendum Addendum: Cefpodoxime called into patient's preferred pharmacy on file consensus is patient's urinalysis is positive for Proteus Mirabella's. He appears to be sensitive to cephalosporins. Nursing staff notified and they will update the patient with patient's family tomorrow first thing in the morning. 05/13/23 22:42
== END 2023-05-11 19:39 | disposition home or self-care (01) ==
LOC: EDUNIT# → ED 17:20
DX: R33.9 Retention of urine, unspecified (principal); Z66 Do not resuscitate; I10 Essential (primary) hypertension; E11.9 Type 2 diabetes mellitus without complications; F03.90 Unspecified dementia, unspecified severity, without behavioral disturbance, psychotic disturbance, mood disturbance, and anxiety; I25.10 Atherosclerotic heart disease of native coronary artery without angina pectoris; Z95.1 Presence of aortocoronary bypass graft; Z79.4 Long term (current) use of insulin; Z79.82 Long term (current) use of aspirin; Z79.899 Other long term (current) drug therapy
CPT/HCPCS: 51702; 81001; 87077; 87086; 87181; 99283; A9270; 81003